=== PATIENT | female | born 1995 | race Caucasian/White ===

== ENCOUNTER 2022-11-27 09:00 | Outpatient (CLI) | payer BC ==
[2022-11-28 02:08] LABS: HSV 2 IGG TYPE SPEC <0.91 index (0.00-0.90)
[2022-11-28 04:09] LABS: HCV AB Non Reactive (Non Reactive)
[2022-11-28 07:08] LABS: RPR Non Reactive (Non Reactive)
== END 2022-11-27 09:01 | disposition home or self-care (01) ==
LOC: LAB 09:00
PROVIDERS: ATTEND Nurse Practitioner Family
DX: Z11.3 Encounter for screening for infections with a predominantly sexual mode of transmission (principal)
CPT/HCPCS: 36415; 86592; 86695; 86696; 86803

== ENCOUNTER 2023-10-17 08:48 | Emergency (ER) | payer BC ==
--- NOTE | 2023-10-17 09:33 | ED Physician Documentation ---
History of Present Illness - Stated complaint Stated Complaint: NECK INJURY, MUSCLE SPASMS - Chief complaint Chief Complaint: Trauma Hd/Nk - History obtained from History obtained from: Patient - History of Present Illness Timing: Yesterday Pain level max: 7 Pain level now: 5 - Additonal information Additional information: Patient is a 28-year-old female who has a history of neck spasm, presents to the emergency department after being in [employer] class yesterday and afterwards felt spasm starting on the left side of her neck that gradually worsened over the next few hours. She states she has been taking Flexeril which has helped to relieve the pain and has allowed her to keep moving her neck. No numbness or tingling. No immediate pain. No trauma. Review of Systems Constitutional: denies: Fever, Chills GI: denies: Nausea, Vomiting, Diarrhea : denies: Dysuria, Frequency, Hesitancy Skin: denies: Rash Musculoskeletal: denies: Back pain Neurologic: denies: Focal weakness, Numbness, Confused, LOC PD PAST MEDICAL HISTORY - Past Medical History Past Medical History: No - Present Medications Home Medications: Ambulatory Orders Medication Instructions Recorded Confirmed Acyclovir 1 tab PO TID PRN 10/17/23 10/17/23 Cyclobenzaprine [Flexeril] 1 tab PO PRN PRN 10/17/23 10/17/23 Cyclobenzaprine [Flexeril] 10 mg PO TID PRN #20 tablet 10/17/23 - Allergies Allergies/Adverse Reactions: Allergies Allergy/AdvReac Type Severity Reaction Status Date / Time azithromycin Allergy Unknown Verified 10/17/23 09:31 - Living Situation Living Arrangement: reports: At home - Social History Does the pt smoke?: No Smoking Status: Never smoker PD ED PE NORMAL - Vitals Vital signs reviewed: Yes - General General: Alert and oriented X 3, No acute distress - HEENT HEENT: Atraumatic, PERRL, Moist mucous membranes, Pharynx benign - Neck Neck: Supple, no meningeal sign, No bony TTP, C-Spine cleared by NEXUS criteria, Other (Paracervical spasm left side of the neck.) - Cardiac Cardiac: RRR, Strong equal pulses - Respiratory Respiratory: No respiratory distress, Clear bilaterally - Abdomen Abdomen: Soft, Non tender, Non distended - Back Back: No spinal TTP - Derm Derm: Warm and dry - Neuro Neuro: Alert and oriented X 3, guest service aide 2-12 intact, No motor deficit, No sensory deficit, Normal speech Eye Opening: Spontaneous Motor: Obeys Commands Verbal: Oriented GCS Score: 15 - Psych Psych: Normal mood, Normal affect Results - Vitals Vitals: Vital Signs - 24 hr 10/17/23 09:21 Temperature 36.7 C Heart Rate 70 Respiratory 18 Rate Blood Pressure 120/87 H O2 Saturation 100 Oxygen O2 Source Room air PD Medical Decision Making - ED course Complexity details: considered differential, d/w patient ED course: No indication for emergent imaging at this time. We will continue Flexeril at home. Appears to be a left-sided muscular spasm of the neck. No indication of carotid dissection or vertebral artery dissection. No dizziness, no vertigo, no facial droop, no focal neurological deficits. Patient counseled regarding signs and symptoms for which I believe and urgent re-evaluation would be necessary. Patient with good understanding of and agreement to plan and is comfortable going home at this time This document was made in part using voice recognition software. While efforts are made to proofread this document, sound alike and grammatical errors may occur. Departure - Departure Disposition: 01 Home, Self Care Clinical Impression: Neck muscle spasm Condition: Good Instructions: ED Spasm Neck No Injury Follow-Up: Yary Mishra ARNP [Primary Care Provider] - Prescriptions: Cyclobenzaprine [Flexeril] 10 mg PO TID PRN #20 tablet PRN Reason: Spasms Comments: Your prescription was sent to [facility] in [place]. Please continue gently stretching your neck at home. Please follow-up with your doctor as needed for any further care. Return if you worsen. Forms: PCP List Discharge Date/Time: 10/17/23 09:40
[2023-10-17 09:35] VITALS: BP 120/87; O2SAT 100
== END 2023-10-17 09:40 | disposition home or self-care (01) ==
LOC: ED 08:48
DX: M62.838 Other muscle spasm (principal); X58.XXXA Exposure to other specified factors, initial encounter; Y93.75 Activity, martial arts
CPT/HCPCS: 99282; 99283